=== PATIENT | male | born 1980 | race Caucasian/White ===

== ENCOUNTER 2017-11-28 09:11 | Emergency (ER) | payer MEDICAID ==
--- NOTE | 2017-11-28 10:18 | ER Document Report ---
ED Neuro Symptoms/Deficit - General Chief Complaint: Numbness of Arm Stated Complaint: LEFT SIDE NUMBNESS Time Seen by Provider: 11/28/17 10:01 Mode of Arrival: Ambulatory Information source: Patient Notes: Patient is a 36-year-old male who presents to the ER today for left shoulder pain and numbness to his entire left arm 2 weeks. 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 He has seen a chiropractor in the last 2 weeks who told him that his whole shoulder "had shifted." Patient states that the numbness is only to his arms and nowhere else. He has pain to the front of the shoulder and the back of the shoulder with movement. Patient has had x-rays by the chiropractor. He denies any injury. He has dislocated the shoulder many years ago when he was in high school. TRAVEL OUTSIDE OF THE [place] IN LAST 30 DAYS: No - Related Data Allergies/Adverse Reactions: ampicillin [Ampicillin] Allergy (Unknown, Verified 11/28/17 11:39) Penicillins Allergy (Unknown, Verified 11/28/17 11:39) Past Medical History - General Information source: Patient - Social History Smoking Status: Unknown if Ever Smoked Family History: Reviewed & Not Pertinent - Immunizations Hx Diphtheria, Pertussis, Tetanus Vaccination: Yes Review of Systems - Review of Systems Constitutional: No symptoms reported EENT: No symptoms reported Cardiovascular: No symptoms reported Respiratory: No symptoms reported Gastrointestinal: No symptoms reported Genitourinary: No symptoms reported Male Genitourinary: No symptoms reported Musculoskeletal: See HPI Skin: No symptoms reported Hematologic/Lymphatic: No symptoms reported Neurological/Psychological: No symptoms reported Physical Exam - Vital signs Vitals: Temp Pulse Resp BP Pulse Ox 98.0 F 72 18 146/86 H 98 11/28/17 09:28 11/28/17 09:28 11/28/17 09:28 11/28/17 09:28 11/28/17 09:28 - Notes Notes: PHYSICAL EXAMINATION: GENERAL: Well-appearing and in no acute distress. HEAD: Atraumatic, normocephalic. EYES: Pupils equal round and reactive to light, extraocular movements intact, sclera anicteric, conjunctiva are normal. NECK: Normal range of motion, supple without lymphadenopathy LUNGS: CTAB and equal. No wheezes rales or rhonchi. HEART: Regular rate and rhythm without murmurs EXTREMITIES: Pain with flexion, extension and abduction actively of the left shoulder, no pain with passive flexion, extension and abduction, no pitting edema. No cyanosis. good capillary refill, good sensation distally NEUROLOGICAL: Cranial nerves grossly intact. Normal sensory/motor exams. PSYCH: Normal mood, normal affect. SKIN: Warm, Dry, normal turgor, no rashes or lesions noted Course - Vital Signs Vital signs: Temp Pulse Resp BP Pulse Ox 97.8 F 70 18 145/90 H 97 11/28/17 11:50 11/28/17 11:50 11/28/17 11:50 11/28/17 11:50 11/28/17 11:50 Discharge - Discharge Clinical Impression: Left arm numbness Left shoulder pain Qualifiers: Chronicity: acute Qualified Code(s): M25.512 - Pain in left shoulder Condition: Stable Disposition: HOME, SELF-CARE Additional Instructions: Return immediately for any new or worsening symptoms. Follow up with primary care provider, call tomorrow to make followup appointment. Prescriptions: Methylprednisolone [Medrol Dosepack (4 mg/Tab) 21 Tab/Dosepak] 4 mg PO ASDIR PRN #21 tab.ds.[id number] PRN Reason: Referrals: DAVID OLIVEROS MD [Primary Care Provider] - Follow up as needed JC FERGUSON MD [ACTIVE STAFF] - Follow up as needed
--- NOTE | 2017-11-28 10:53 | RADIOLOGY REPORT (SQ) ---
EXAM DESCRIPTION: CT LT UPPER EXTREMITY WITHOUT COMPLETED DATE/TIME: 11/28/2017 10:23 am REASON FOR STUDY: left arm numbness/pain in shoulder COMPARISON: None. TECHNIQUE: Axial imaging performed through the leftshoulder with reformatted oblique coronal and obl ique sagittal imaging windowed for bone and soft tissues. All CT scanners at this facility use dose modulation, iterative reconstruction, and/or weight based d osing when appropriate to reduce radiation dose to as low as reasonably achievable (ALARA). [facility]: Dose Right [facility]: CareDose [facility]: Dose Right [facility]: Teradose 4D [facility]: [employer] RADIATION DOSE: CT Rad equipment meets quality standard of care and radiation dose reduction techniq ues were employed. CTDIvol: 12.4 mGy. DLP: 304 mGy-cm. mGy. LIMITATIONS: None. FINDINGS: SOFT TISSUES: Normal. No soft tissue masses along the leftward lower cervical spine, axil la/brachials plexus, or periarticular soft tissues along the shoulder. BONY ARCHITECTURE: Normal. No fracture. Small subcortical cyst posterior left humeral head at the e dge of the greater tuberosity. GLENOHUMERAL JOINT: Normal alignment. Normal joint space. ACROMION AND AC JOINT: Type 2 acromion. No AC joint hypertrophy. ROTATOR CUFF: Grossly normal thickness on the sagittal reconstruction images. GLENOID, LABRUM AND BICEPS: Not well seen due to non arthrogram technique OTHER: Results discussed with Lupe Lawson in the emergency room IMPRESSION: Unremarkable study. No acute fracture or malalignment. TECHNICAL DOCUMENTATION: JOB ID: [id number] Quality ID # [id number]: Final reports with documentation of one or more dose reduction techniques (e.g., Au tomated exposure control, adjustment of the mA and/or kV according to patient size, use of iterative reconstruction technique) 2010 [employer]- All Rights Reserved Reading location - IP/workstation name: [facility]-[email or web address]
[2017-11-28] MEDS ORDERED: OXYCODONE-ACETAMINOPHEN 5-325 MG TABLET PO ONE (11:07)
[2017-11-28 11:52] VITALS: BP 145/90
== END 2017-11-28 11:50 | disposition home or self-care (01) ==
LOC: ER 09:11
DX: R20.0 Anesthesia of skin (principal); M25.512 Pain in left shoulder; Z87.828 Personal history of other (healed) physical injury and trauma; Z88.0 Allergy status to penicillin
CPT/HCPCS: 99284

== ENCOUNTER → 2017-12-06 | Outpatient (CLI) | payer MEDICAID ==
--- NOTE | 2017-12-06 15:32 | RADIOLOGY REPORT (SQ) ---
EXAM DESCRIPTION: CERV SP 4 OR 5 VIEWS COMPLETED DATE/TIME: 12/06/2017 3:16 pm REASON FOR STUDY: NECK STRAIN S16.1XXA STRAIN OF MUSCLE, FASCIA AND TENDON AT NECK LEVEL, COMPARISON: None. NUMBER OF VIEWS: Five views. TECHNIQUE: AP, lateral, obliques and odontoid radiographic images acquired of the cervical spine. LIMITATIONS: None. FINDINGS: MINERALIZATION: Normal. ALIGNMENT: Reversal of lordotic curve. VERTEBRAE: Vertebral bodies of normal height. DISCS: Disc space narrowing and osteophyte formation C4- 5 and C5-6. FORAMINA: No osteophytes or foraminal narrowing. LATERAL AND POSTERIOR ELEMENTS: Facets, lateral masses and spinous processes without significant find ings. HARDWARE: None in the spine. SOFT TISSUES: No masses or calcifications. Lung apices clear. OTHER: No other significant finding. IMPRESSION: Cervical disc disease. TECHNICAL DOCUMENTATION: JOB ID: [id number] [employer]- All Rights Reserved Reading location - IP/workstation name: [email or web address]
== END ==
LOC: RAD 14:52
PROVIDERS: ATTEND Family Medicine
DX: S16.1XXA Strain of muscle, fascia and tendon at neck level, initial encounter (principal); X58.XXXA Exposure to other specified factors, initial encounter
CPT/HCPCS: 72050

== ENCOUNTER 2018-03-08 05:30 | Day surgery (SDC) | payer MEDICAID ==
[2018-03-01 12:28] LABS: HEMOGLOBIN 13.9 g/dL (13.5-17.0); MEAN CORPUSCULAR HEMOGLOBIN 27.1 pg (27.0-33.4); MEAN CORPUSCULAR VOLUME 80 fl (80-97); PLATELET COUNT 184 10^3/uL (150-450); RED BLOOD COUNT 5.14 10^6/uL (4.35-5.55); RED CELL DISTRIBUTION WIDTH 14.8 % (11.5-14.0); WHITE BLOOD COUNT 10.7 10^3/uL (4.0-10.5)
[2018-03-01 12:53] LABS: ANION GAP 10 (5-19); BLOOD UREA NITROGEN 14 mg/dL (7-20); CALCIUM 9.1 mg/dL (8.4-10.2); CARBON DIOXIDE 29 mmol/L (22-30); CHLORIDE 105 mmol/L (98-107); GLUCOSE 86 mg/dL (75-110); POTASSIUM 4.3 mmol/L (3.6-5.0); SODIUM 143.8 mmol/L (137-145)
[~2018-03-08 05:30] MED LIST: LACTATED RINGERS 1000 ML IV PRN; LIDOCAINE 0.5% INJ-PF (5 MG/ML) 50 ML SDV SUBCUT PRN
[2018-03-08] MEDS ORDERED: CEFAZOLIN 2 GM/D5W RTU 0 GM/0 ML RTUPB IV ONE (05:35)
[2018-03-08] MEDS ORDERED: CLINDAMYCIN 600 MG/D5W RTU 600 MG/50 ML RTUPB IV ONE (05:51)
[2018-03-08] MEDS ORDERED: THROMBIN (BOVINE) 5000 UNIT EPITAXIS KIT ONE (06:26)
[2018-03-08] MEDS ORDERED: BACITRACIN INJ 50,000 UNIT VIAL ONE (06:26)
[2018-03-08] MEDS ORDERED: FENTANYL CITRATE INJ/PF 250 MCG/5 ML AMPULE ONE (07:14)
[2018-03-08] MEDS ORDERED: MIDAZOLAM 2 MG/2 ML INJ ONE (07:14)
[2018-03-08] MEDS ORDERED: ACETAMINOPHEN 1,000 MG/100 ML RTUPB IV ONE (07:15)
[2018-03-08] MEDS ORDERED: PROPOFOL INJ 200 MG/20 ML VIAL IV ONE ×2 (07:15→08:28)
[2018-03-08] MEDS ORDERED: MEPERIDINE HCL/PF INJ 25 MG/1 ML DISP.SYRIN IV PRN (08:31)
[2018-03-08] MEDS ORDERED: FENTANYL CITRATE INJ/PF 100 MCG/2 ML AMPUL IV PRN ×3 (08:31)
[2018-03-08] MEDS ORDERED: OXYCODONE-ACETAMINOPHEN 5-325 MG TABLET PO PRN ×2 (08:31)
[2018-03-08] MEDS ORDERED: PROMETHAZINE HCL INJ 25 MG/1 ML VIAL IV PRN ×2 (08:31)
[2018-03-08] MEDS ORDERED: DIPHENHYDRAMINE HCL 50 MG/ML VIAL IV PRN (08:31)
--- NOTE | 2018-03-08 10:10 | RADIOLOGY REPORT (SQ) ---
EXAM DESCRIPTION: CERV SP 3 VIEW OR LESS; NO CHG FLUORO COMPLETED DATE/TIME: 03/08/2018 9:57 am REASON FOR STUDY: C6-C7 ACDF M50.10 CERVICAL DISC DISORDER W RADICULOPATHY, UNSP CERVICAL COMPARISON: 12/06/2017 FLUOROSCOPY TIME: 0.8 minutes 7 digital C-arm images saved to PACS. TECHNIQUE: Intra-operative images acquired during surgical procedure to evaluate progress. NUMBER OF IMAGES: 7 digital C-arm images saved to pac's LIMITATIONS: None. FINDINGS: Intra procedural imaging and fluoro during anterior fusion at C6-7 with hardware. Please see the operative report for further details IMPRESSION: Intra procedural imaging and fluoro COMMENT: Quality ID 145: Final reports for procedures using fluoroscopy that document radiation exp osure indices, or exposure time and number of fluorographic images (if radiation exposure indices are not available) Please consult full operative report of the attending physician for description of the procedure. TECHNICAL DOCUMENTATION: JOB ID: [id number] [employer]- All Rights Reserved Reading location - IP/workstation name: [facility]-[email or web address]
--- NOTE | 2018-03-08 10:10 | RADIOLOGY REPORT (SQ) ---
EXAM DESCRIPTION: CERV SP 3 VIEW OR LESS; NO CHG FLUORO COMPLETED DATE/TIME: 03/08/2018 9:57 am REASON FOR STUDY: C6-C7 ACDF M50.10 CERVICAL DISC DISORDER W RADICULOPATHY, UNSP CERVICAL COMPARISON: 12/06/2017 FLUOROSCOPY TIME: 0.8 minutes 7 digital C-arm images saved to PACS. TECHNIQUE: Intra-operative images acquired during surgical procedure to evaluate progress. NUMBER OF IMAGES: 7 digital C-arm images saved to pac's LIMITATIONS: None. FINDINGS: Intra procedural imaging and fluoro during anterior fusion at C6-7 with hardware. Please see the operative report for further details IMPRESSION: Intra procedural imaging and fluoro COMMENT: Quality ID 145: Final reports for procedures using fluoroscopy that document radiation exp osure indices, or exposure time and number of fluorographic images (if radiation exposure indices are not available) Please consult full operative report of the attending physician for description of the procedure. TECHNICAL DOCUMENTATION: JOB ID: [id number] [employer]- All Rights Reserved Reading location - IP/workstation name: [email or web address]-[email or web address]
--- NOTE | 2018-03-08 10:26 | OPERATIVE REPORT E ---
Operative Report NAME: ANTONELLA OLIVA : 1980 AGE: 37Y DATE OF SURGERY: 03/08/2018 ROOM: PREOPERATIVE DIAGNOSES: 1. C6-7 herniated nucleus pulposus. 2. Degenerative disk disease. 3. Neck pain. 4. Radiculitis. POSTOPERATIVE DIAGNOSES: 1. C6-7 herniated nucleus pulposus. 2. Degenerative disk disease. 3. Neck pain. 4. Radiculitis. PROCEDURE: 1. C6-7 anterior cervical diskectomy and fusion with instrumentation. 2. Interbody spacer at C6-7, allograft. 3. Iliac crest aspiration through a separate incision, right iliac crest. SURGEON: NINOSKA LEDEZMA M.D. SKI BASE TRIMMER: HAILEY Stewart ESTIMATED BLOOD LOSS: 50 mL. INDICATIONS: The patient is a 37-year-old male with left upper extremity symptoms, numbness, and weakness. After a discussion with the patient and after failure of conservative management, the decision was made to proceed with surgical intervention. I discussed with the patient the risks that include, but are not limited to, infection, bleeding, damage to nerves or blood vessels, the risk of dysphagia, the risk of dysphonia, the risk of continued neck pain. Patient understood these risks and wished to pursue the surgical intervention. OPERATIVE TECHNIQUE: Patient was brought into the room, placed under anesthesia, placed in a supine position with a bolster between the shoulder blades. Neck was placed in neutral position after having neuromonitoring leads placed on him. The right iliac crest was prepped and draped in the usual sterile fashion and the Jamshidi needle was introduced into the iliac crest 7 cm posterior to the anterior superior iliac spine. A total of 5 mL of bone marrow aspirate were obtained. The site was cleansed and dressed with a Band-Aid. Attention was then paid to the cervical spine. After tucking the arms to the side with the medial condyles being well padded and the arms padded on the sides as well, C-arm fluoroscopy was obtained to verify the level. Skin was marked. After completion of prepping and draping, and after having received 600 mg of clindamycin which was carried out before the aspiration of the iliac crest, a transverse incision was carried down through the skin. Electrocautery was used to maintain hemostasis and the pretracheal fascia was dissected out and then blunt dissection was carried down into the prevertebral fascia. The skyline/TrimLine retractor system was used to retract mediolaterally, exposing the disk space. A bent needle was placed at the C6-7 level. C-arm fluoroscopy was obtained to verify that level. Upon verification of that level then Durham pins were positioned into the C6 and the C7 vertebral bodies. The microscope was brought in. Under the microscope the Durham pin retractors were used to retract cephalad and caudad and the skyline/TrimLine retractor was used to retract mediolaterally. Please note, the longus colli were elevated off the bone anteriorly to place the retractors under them. After that an annulotomy was performed under the microscope, and through the assistance of Jorge Allen, physician nursing assistants teacher, an annulotomy was performed. Many small and large pieces of disk were resected piecemeal. Endplates were curetted to good bleeding bone. The posterior longitudinal ligament was resected. There was noted to be a left-sided disk herniation which was fished out using the micro nerve hook. The posterior longitudinal ligament was resected completely. Foraminotomies were performed bilaterally. Bipolar electrocautery was used to maintain hemostasis. The appropriate sized spacer was determined to be a 6 mm lordotic spacer. A [employer] AGX spacer, R spacer, 8 x 14 x 6 mm, 7 degree lordotic, was utilized and attached to a Reduced Profile [employer] AGX plate, 14 wide, 6 high. Then 2 screws, self-drilling and self-tapping, variable-angle screws, 3.6 x 16 mm, were drilled in place into the bone into C6 and C7 and then the locking screw tab was used to lock the screws in place. Please note, the allograft that was placed in the interbody space AGX Coalition spacer was 2 mL of Conduct putty from [employer] mixed with bone marrow aspirate. After that the wound was irrigated with a liter of Bacitracin irrigation and C-arm was obtained in AP and lateral position. Then, a 7 flat Martiniquais drain was brought in anterior and inferior to the incision. The drain stitch was used to hold the drain in position and then 2-0 Vicryl was used to approximate the platysma, and the skin was reapproximated with 3-0 running subcuticular 3-0 Monocryl closure. The wounds were dressed with Benzoin, Steri-Strips, 4 x 4, and tape. Estimated blood loss was 50 mL. Patient's condition is stable. Please note, this procedure could not have been done without the assistance of Jorge Allen, physician nursing assistants teacher. Please note, neuromonitoring was tested throughout the whole case preoperatively and throughout the case and postoperatively, and SSEP and cranial motor testing which were found to be stable. DICTATING PHYSICIAN: NINOSKA LEDEZMA M.D. [id number] PHY#: [id number] ID: [id number] JOB#: [id number] ACCT: [id number] cc:NINOSKA LEDEZMA M.D. >
[2018-03-08] MEDS ORDERED: METHOCARBAMOL INJ/PF 1000 MG/10 ML SDV IV ONE (11:00)
[2018-03-08] MEDS ORDERED: BISACODYL 5 MG TABEC PO PRN (11:40)
[2018-03-08] MEDS ORDERED: DIPHENHYDRAMINE HCL 25 MG CAPSULE PO PRN (11:40)
[2018-03-08] MEDS ORDERED: ACETAMINOPHEN 325 MG/10.15 ML PO PRN (11:40)
[2018-03-08] MEDS ORDERED: ACETAMINOPHEN SOLN 325 MG/10.15 ML UDCUP PO PRN (11:40)
[2018-03-08] MEDS ORDERED: PHENOL MM PRN (11:40)
[2018-03-08] MEDS ORDERED: SODIUM PHENOLATE MM PRN (11:40)
[2018-03-08] MEDS ORDERED: METHOCARBAMOL 750 MG TABLET PO PRN (11:40)
[2018-03-08] MEDS ORDERED: ACETAMINOPHEN PO PRN ×2 (11:40)
[2018-03-08] MEDS ORDERED: ACETAMINOPHEN 650 MG SUPP.RECT PR PRN (11:40)
[2018-03-08] MEDS ORDERED: ONDANSETRON HCL INJ/PF 4 MG/2 ML SDV IV PRN (11:40)
[2018-03-08] MEDS ORDERED: HYDROCODONE PO PRN (11:40)
[2018-03-08] MEDS ORDERED: OXYCODONE PO PRN (11:40)
[2018-03-08] MEDS ORDERED: DIPHENHYDRAMINE HCL 25 MG IV PRN (11:40)
[2018-03-08] MEDS ORDERED: CLINDAMYCIN 600 MG/D5W RTU 600 MG/50 ML RTUPB IV SCH (14:00)
[2018-03-08] MEDS ORDERED: ONDANSETRON HCL INJ/PF 4 MG/2 ML SDV ONE (14:56)
[2018-03-08] MEDS ORDERED: GLYCOPYRROLATE 1 MG/5 ML SYRINGE ONE (14:56)
[2018-03-08] MEDS ORDERED: SUCCINYLCHOLINE CHLORIDE INJ 200 MG/10 ML VIAL ONE (14:56)
[2018-03-08 16:21] VITALS: BP 114/75
[2018-03-08] MEDS ORDERED: SENNOSIDES/DOCUSATE 8.6-50 MG 1 EACH TABLET PO SCH (18:00)
[2018-03-10] MEDS ORDERED: BISACODYL 10 MG SUPP.RECT PR PRN (06:00)
== END 2018-03-08 16:59 | disposition home or self-care (01) ==
LOC: OROUT 05:30
PROVIDERS: ATTEND Orthopaedic Surgery
DX: M50.123 Cervical disc disorder at C6-C7 level with radiculopathy (principal); M48.02 Spinal stenosis, cervical region; Z88.0 Allergy status to penicillin; Z87.891 Personal history of nicotine dependence; Z01.818 Encounter for other preprocedural examination
CPT/HCPCS: 36415; 85027; 80048; 72040; 22551; C1713; J2250; S0077; J3490 ×3; J3010; J2800; J0330; J2405; J2704; J0131; 600; J0690